=== PATIENT | female | born 1950 | race Caucasian/White ===

== ENCOUNTER → 2017-02-16 | Outpatient (CLI) | payer MEDICARE, OTHER ==
--- NOTE | 2017-02-17 09:09 | MM ---
Reason for exam: screening (asymptomatic). Last mammogram was performed 2 years and 3 months ago. History: Patient is postmenopausal and is nulliparous. Physical Findings: A clinical breast exam by your physician is recommended on an annual basis and results should be correlated with mammographic findings. MG Screening Mammo w CAD Bilateral CC and MLO view(s) were taken. Prior study comparison: November 06, 2014, bilateral MG screening mammo w CAD. October 10, 2013, bilateral digital screening mammo w/CAD. The breast tissue is heterogeneously dense. This may lower the sensitivity of mammography. No significant changes when compared with prior studies. ASSESSMENT: Benign, BI-RAD 2 RECOMMENDATION: Routine screening mammogram of both breasts in 1 year.
== END | disposition home or self-care (01) ==
LOC: RADMAMWWP 16:38
PROVIDERS: ATTEND Family Medicine
DX: Z12.31 Encounter for screening mammogram for malignant neoplasm of breast (principal)

== ENCOUNTER → 2018-08-24 | Outpatient (CLI) | payer MEDICARE, OTHER ==
--- NOTE | 2018-08-26 12:36 | MM ---
Reason for exam: screening (asymptomatic). Last mammogram was performed 1 year and 6 months ago. History: Patient is postmenopausal and is nulliparous. Physical Findings: A clinical breast exam by your physician is recommended on an annual basis and results should be correlated with mammographic findings. MG 3D Screening Mammo W/Cad Bilateral CC and MLO view(s) were taken. Prior study comparison: February 16, 2017, bilateral MG screening mammo w CAD. November 06, 2014, bilateral MG screening mammo w CAD. Developing asymmetry left upper outer quadrant. This finding is changed when compared with previous exams. ASSESSMENT: Incomplete: need additional imaging evaluation, BI-RAD 0 RECOMMENDATION: Special view mammogram of the left breast. If lesion persists on supplemental views, image directed ultrasound is recommended. [facility] will attempt to contact patient to return for supplemental views and ultrasound if indicated.
== END | disposition home or self-care (01) ==
LOC: RADMAMWWP 08:49
PROVIDERS: ATTEND Family Medicine
DX: Z12.31 Encounter for screening mammogram for malignant neoplasm of breast (principal)
CPT/HCPCS: 77063; 77067

== ENCOUNTER → 2018-08-24 | Outpatient (CLI) | payer MEDICARE, OTHER ==
--- NOTE | 2018-08-24 14:04 | BD ---
EXAMINATION TYPE: Axial Bone Density DATE OF EXAM: 08/24/2018 COMPARISON: NONE CLINICAL HISTORY: Height: 62 Weight: 128.0 FRAX RISK QUESTIONS: Alcohol (3 or more units per day): no Family History (Parent hip fracture): unsure Glucocorticoids (More than 3mos): no (Ex: prednisone, prednisolone, methylprednisolone, dexamethasone, and hydrocortisone). History of Fracture in Adulthood: no Secondary Osteoporosis: 1. Type 1 Diabetes: no 2. Hyperthyroidism: no 3. Menopause before 45: no 4. Malnutrition: no 5. Chronic liver disease: no Rheumatoid Arthritis: no Current Tobacco Use: no RISK FACTORS HISTORY OF: Family History of Osteoporosis: unsure Active: yes Diet low in dairy products/other sources of calcium: no Postmenopausal woman: hysterectomy age 52 Lost more than 2 inches in height since high school: yes MEDICATIONS: pt states none Additional History: pt is mentally challenged/ answered questions best she could EXAM MEASUREMENTS: Bone mineral densitometry was performed using the [employer] System. Bone mineral density as measured about the Lumbar spine is: ----- L1-L4(G/cm2): 0.995 T Score Values are as follows: ----- L2: -1.8 ----- L3: -1.1 ----- L4: -1.1 ----- L1-L4: -1.5 Bone mineral density has: increased 6.5 % since study of: 11.06.2014 Bone mineral density about the R hip (g/cm2): 0.691 Bone mineral density about the L hip (g/cm2): 0.774 T Score values are as follows: -----R Neck: -2.5 -----L Neck: -1.9 -----R Total: -1.8 -----L Total: -1.7 Bone mineral density has: decreased -0.9 % since study of: 11.06.2014 IMPRESSION: Osteopenia NOTE: T-SCORE=SD OF THE YOUNG ADULT MEAN.
== END | disposition home or self-care (01) ==
LOC: RADBDWWP 08:53
PROVIDERS: ATTEND Family Medicine
DX: M85.89 Other specified disorders of bone density and structure, multiple sites (principal)
CPT/HCPCS: 77080

== ENCOUNTER → 2018-09-14 | Outpatient (CLI) | payer MEDICARE, OTHER ==
--- NOTE | 2018-09-15 08:44 | MM ---
Reason for exam: additional evaluation requested from prior study. Last mammogram was performed 1 month ago. History: Patient is postmenopausal and is nulliparous. Physical Findings: Nurse did not find any significant physical abnormalities on exam. MG 3D Work Up W/Cad LT Spot compression CC, spot compression MLO, and LM view(s) were taken of the left breast. Prior study comparison: August 24, 2018, bilateral MG 3d screening mammo w/cad. February 16, 2017, bilateral MG screening mammo w CAD. The breast tissue is heterogeneously dense. This may lower the sensitivity of mammography. There is no discrete abnormality on additional views. These results were verbally communicated with the patient and result sheet given to the patient on 09/14/18. ASSESSMENT: Negative, BI-RAD 1 RECOMMENDATION: Return to routine screening mammogram schedule for both breasts.
== END | disposition home or self-care (01) ==
LOC: RADMAMWWP 14:56
PROVIDERS: ATTEND Family Medicine
DX: R92.8 Other abnormal and inconclusive findings on diagnostic imaging of breast (principal)
CPT/HCPCS: 77065; G0279; 77061

== ENCOUNTER → 2019-09-11 | Outpatient (CLI) | payer MEDICARE, OTHER ==
--- NOTE | 2019-09-11 13:19 | MM ---
Reason for exam: screening (asymptomatic). Last mammogram was performed 1 year ago. History: Patient is postmenopausal and is nulliparous. Physical Findings: A clinical breast exam by your physician is recommended on an annual basis and results should be correlated with mammographic findings. MG 3D Screening Mammo W/Cad Bilateral CC and MLO view(s) were taken. Prior study comparison: September 14, 2018, left breast MG 3d work up w/cad LT. August 24, 2018, bilateral MG 3d screening mammo w/cad. The breast tissue is extremely dense which could obscure a lesion on mammography. Benign appearing calcifications in the right breast. No suspicious abnormality. No significant changes when compared with prior studies. ASSESSMENT: Benign, BI-RAD 2 RECOMMENDATION: Routine screening mammogram of both breasts in 1 year.
== END | disposition home or self-care (01) ==
LOC: RADMAMWWP 07:17 → EEVIPCON 07:40
PROVIDERS: ATTEND Family Medicine
DX: Z12.31 Encounter for screening mammogram for malignant neoplasm of breast (principal)
CPT/HCPCS: 77063; 77067

== ENCOUNTER → 2020-09-13 | Outpatient (CLI) | payer MEDICARE, OTHER ==
--- NOTE | 2020-09-17 11:09 | MM ---
Reason for exam: screening (asymptomatic). Last mammogram was performed 1 year ago. History: Patient is postmenopausal and is nulliparous. Physical Findings: A clinical breast exam by your physician is recommended on an annual basis and results should be correlated with mammographic findings. MG 3D Screening Mammo W/Cad Bilateral CC, MLO, and XCCL view(s) were taken. Prior study comparison: September 11, 2019, bilateral MG 3d screening mammo w/cad. September 14, 2018, left breast MG 3d work up w/cad LT. The breast tissue is heterogeneously dense. This may lower the sensitivity of mammography. Tiny round calcification on the right is unchanged. No significant changes when compared with prior studies. ASSESSMENT: Negative, BI-RAD 1 RECOMMENDATION: Routine screening mammogram of both breasts in 1 year.
== END | disposition home or self-care (01) ==
LOC: RADMAMWWP 07:54
PROVIDERS: ATTEND Family Medicine
DX: Z12.31 Encounter for screening mammogram for malignant neoplasm of breast (principal)
CPT/HCPCS: 77063; 77067

== ENCOUNTER → 2021-01-03 | Outpatient (CLI) | payer MEDICARE, OTHER ==
--- NOTE | 2021-01-04 03:06 | MR ---
EXAMINATION TYPE: MR brain wo/w con DATE OF EXAM: 01/03/2021 COMPARISON: None HISTORY: Blurred vision, right eye pain, temporal headache CONTRAST: Standard multiplanar, multisequence MRI departmental protocol utilizing 6 mL intravenous Gadavist donovan olinium contrast. Ventricles and sulci appear normal. There is no mass effect nor midline shift. There is no sign of in tracranial hemorrhage. The diffusion images show no evidence of cortical infarct. There is very mild linear increased signal in the white matter adjacent to the lateral ventricles. Th ere are a few nodular foci that measure up to 5 mm around the occipital horns of the lateral ventricl es. Total number is approximately 5. Brainstem is intact. Cerebellum is intact. There is no evidence of a mass. Corpus callosum shows mild thinning. Sella turcica appears normal. Contrast enhancement is normal. Th ere is normal enhancement of the venous sinuses. Pituitary stalk appears normal. IMPRESSION: There are a few mild white matter signal changes that could relate to some mild microvascular ischemi a. I do not suspect demyelinating disease. No evidence of cortical infarct. No evidence of orbital mass.
== END | disposition home or self-care (01) ==
LOC: RADMRIMAIN 19:30
PROVIDERS: ATTEND Family Medicine
DX: R90.82 White matter disease, unspecified (principal); R51.9 Headache, unspecified
CPT/HCPCS: 70553; A9585

== ENCOUNTER 2021-01-20 12:05 | Day surgery (SDC) | payer MEDICARE, OTHER ==
[2021-01-17 12:20] VITALS: BMI 31.6
[~2021-01-20 12:05] MED LIST: DEXAMETHASONE SOD PHOSPHATE 4 MG/ML 1 ML VIAL IV ONE; HYDROmorphone 0.5 MG/0.5 ML SYRINGE IVP PRN; LACTATED RINGERS 1,000 ML IV SCH; LIDOCAINE 1% (10MG/ML) FOR IV START INTRADERMA PRN; Pre Op ABX Message 1 EACH MISC MISCELLANE ONE
[2021-01-20] MEDS ORDERED: ONDANSETRON 4 MG/2 ML VIAL ONE (13:00)
[2021-01-20 13:12] VITALS: TEMP 98.3
[2021-01-20 13:12] LABS: Glucose,Whole Blood 95 mg/dL (75-99)
[2021-01-20] MEDS ORDERED: LIDOCAINE 1% INJ 10MG/ML (20 ML MDV) ONE (15:38)
[2021-01-20] MEDS ORDERED: KETAMINE 10 MG/ML 20 ML VIAL ONE (15:38)
[2021-01-20] MEDS ORDERED: PROPOFOL 10 MG/ML 20 ML VIAL IV ONE (15:38)
[2021-01-20] MEDS ORDERED: fentaNYL (PF) 50 MCG/ML 2 ML AMP ONE (15:38)
[2021-01-20] MEDS ORDERED: MIDAZOLAM 2 MG/2 ML VIAL ONE (15:38)
[2021-01-20] MEDS ORDERED: LIDOCAINE 1% INJ 10MG/ML (20 ML MDV) SQ ONE ×2 (15:50)
--- NOTE | 2021-01-20 17:04 | P.OP ---
Description of Procedure: Date of Procedure: 01/20/2021 Preoperative Diagnosis: Persistent headaches, rule out temporal arteritis Postoperative Diagnosis: Same Procedure(s) Performed: Left temporal artery branch biopsy Anesthesia: Sedation Surgeon: Michael Powers Estimated Blood Loss (ml): 5cc Pathology: Branch of left temporal artery Condition: stable Disposition: PACU Indications for Procedure: 71-year-old female with history of persistent headaches located on the left and radiates posterior to her eye. She underwent full workup for her headaches including an MRI of the brain as well as multiple laboratory draws demonstrating slight increase in her CRP and ESR. She has been on steroids with some improvement over the last several weeks and presents today for diagnostic biopsy. Description of Procedure: After written informed consent was obtained the patient all risks benefits and competitions were described the patient is brought to the operative suite and laid in a supine position. The area of the left side of the head was prepped and draped in usual sterile fashion after appropriate anesthetic was performed per the anesthesiologist. A timeout was performed in normal fashion antibiotics were administered prior to incision. Utilizing Doppler the temporal artery was located. Local anesthetic was infused overlying this area. Small incision with a 15 blade scalpel was then created just anterior to the hairline and dissection was carried down with electrocautery to the temporal artery. The anterior branch of the temporal artery was then dissected free in a circumferential manner. This vessel was diminutive in size but did demonstrate Doppler arterial flow. Approximately 2 cm were then dissected free and the proximal and distal aspects were then ligated with 4-0 silk suture. The specimen was then passed off for pathology. The area was irrigated and the incision was closed in a multilayer fashion. The skin was then cleansed and glue was placed. Patient all procedure well and was sent to PACU for recovery. Plan - Discharge Summary Discharge Rx Participant: No New Discharge Prescriptions: No Action Multivitamin with Iron [Multivitamins with Iron] 1 each PO DAILY Alendronate Sodium [Fosamax] 70 mg PO Q7D prednisoLONE ACETATE 1% OPHTH [Pred Forte 1%] 1 drops LEFT EYE TID LORazepam [Ativan] 0.5 mg PO BID PRN PRN Reason: Anxiety predniSONE [Deltasone] 60 mg PO HS Cholecalciferol [Vitamin D3 (25 Mcg = 1000 Iu)] 25 mcg PO DAILY Simvastatin [Zocor] 40 mg PO HS Cetirizine HCl [Zyrtec] 10 mg PO HS Blink Gel Tears 1 - 2 drops BOTH EYES TID Acetaminophen [Tylenol Extra Strength] 1,000 mg PO DIRECTED PRN PRN Reason: Pain Discharge Medication List Acetaminophen [Tylenol Extra Strength] 1,000 mg PO DIRECTED PRN 01/17/21 [History] Alendronate Sodium [Fosamax] 70 mg PO Q7D 01/17/21 [History] Blink Gel Tears 1 - 2 drops BOTH EYES TID 01/17/21 [History] Cetirizine HCl [Zyrtec] 10 mg PO HS 01/17/21 [History] Cholecalciferol [Vitamin D3 (25 Mcg = 1000 Iu)] 25 mcg PO DAILY 01/17/21 [History] LORazepam [Ativan] 0.5 mg PO BID PRN 01/17/21 [History] Multivitamin with Iron [Multivitamins with Iron] 1 each PO DAILY 01/17/21 [History] Simvastatin [Zocor] 40 mg PO HS 01/17/21 [History] predniSONE [Deltasone] 60 mg PO HS 01/17/21 [History] prednisoLONE ACETATE 1% OPHTH [Pred Forte 1%] 1 drops LEFT EYE TID 01/17/21 [History] Follow up Appointment(s)/Referral(s): Michael Powers DO [STAFF PHYSICIAN] - 2 Weeks Discharge Disposition: HOME SELF-CARE
[2021-01-20] MEDS ORDERED: LABETALOL SYRINGE 5 MG/ML IVP ONE (18:05)
[2021-01-20 18:35] VITALS: BP 156/82; PULSE 57; RESP 16
== END 2021-01-20 18:36 | disposition home or self-care (01) ==
LOC: OR 12:05
PROVIDERS: ATTEND Surgery
DX: R51.9 Headache, unspecified (principal); H53.8 Other visual disturbances; H57.12 Ocular pain, left eye; I65.23 Occlusion and stenosis of bilateral carotid arteries; E78.5 Hyperlipidemia, unspecified; H26.9 Unspecified cataract; F89 Unspecified disorder of psychological development; F60.9 Personality disorder, unspecified; Z79.52 Long term (current) use of systemic steroids; Z79.899 Other long term (current) drug therapy; Z79.83 Long term (current) use of bisphosphonates
CPT/HCPCS: 37609; 96360; 99283; 36415; 88305; 80048; 82009; 85025; J2250; J1100; J2405; J2001; J3010; J2704

== ENCOUNTER 2021-01-20 22:03 | Emergency (ER) | payer MEDICARE, OTHER ==
--- NOTE | 2021-01-20 23:08 | ED ---
Recheck HPI - General Chief Complaint: Recheck/Abnormal Lab/Rx Stated Complaint: Surgical Issues Time Seen by Provider: 01/20/21 22:24 Source: patient, family Mode of arrival: ambulatory Limitations: no limitations - History of Present Illness Initial Comments: This patient is a 71-year-old woman who is brought by a caregiver to be evaluated for elevated blood sugar. When checked tonight it was greater than 400. They phoned the covering physician who recommended she be seen in the emergency department. The patient had undergone a temporal artery biopsy this afternoon, and has been taking 60 mg of prednisone daily. Patient denies abdominal pain, nausea or vomiting. MD Complaint: other (Elevated blood sugar) -: hour(s) Returns Today for: other (Elevated blood sugar) Symptoms Since Prior Visit: no new symptoms Associated Symptoms: none Treatments Prior to Arrival: other medications - Related Data Home Medications Medication Instructions Recorded Confirmed Acetaminophen [Tylenol Extra 1,000 mg PO DIRECTED PRN 01/17/21 01/20/21 Strength] Alendronate Sodium [Fosamax] 70 mg PO Q7D 01/17/21 01/20/21 Blink Gel Tears 1 - 2 drops BOTH EYES TID 01/17/21 01/20/21 Cetirizine HCl [Zyrtec] 10 mg PO HS 01/17/21 01/20/21 Cholecalciferol [Vitamin D3 (25 25 mcg PO DAILY 01/17/21 01/20/21 Mcg = 1000 Iu)] LORazepam [Ativan] 0.5 mg PO BID PRN 01/17/21 01/20/21 Multivitamin with Iron 1 each PO DAILY 01/17/21 01/20/21 [Multivitamins with Iron] Simvastatin [Zocor] 40 mg PO HS 01/17/21 01/20/21 predniSONE [Deltasone] 60 mg PO HS 01/17/21 01/20/21 prednisoLONE ACETATE 1% OPHTH 1 drops LEFT EYE TID 01/17/21 01/20/21 [Pred Forte 1%] Previous Rx's Medication Instructions Recorded metFORMIN HCL [Glucophage] 500 mg PO BID #10 tab 01/21/21 Allergies Allergy/AdvReac Type Severity Reaction Status Date / Time No Known Allergies Allergy Verified 01/20/21 22:15 Review of Systems ROS Statement: Those systems with pertinent positive or pertinent negative responses have been documented in the HPI. ROS Other: All systems not noted in ROS Statement are negative. 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 c/o Lt eye and head pain, some diff w/ lt eye vision, on PO steroids. History of Any Multi-Drug Resistant Organisms: None Reported Past Surgical History: Hysterectomy Past Anesthesia/Blood Transfusion Reactions: Unable to Obtain Past Psychological History: Anxiety Smoking Status: Never smoker Past Alcohol Use History: None Reported Past Drug Use History: None Reported - Past Family History Father Family Medical History: Diabetes Mellitus General Exam Limitations: no limitations General appearance: alert, in no apparent distress Head exam: Present: atraumatic, normocephalic ENT exam: Present: normal oropharynx Neck exam: Present: normal inspection, full ROM Respiratory exam: Present: normal lung sounds bilaterally. Absent: respiratory distress, wheezes, rales, rhonchi, stridor Cardiovascular Exam: Present: regular rate, normal rhythm, normal heart sounds. Absent: systolic murmur, diastolic murmur, rubs, gallop GI/Abdominal exam: Present: soft. Absent: distended, tenderness, guarding, rebound, rigid, mass Extremities exam: Present: normal inspection, normal capillary refill. Absent: pedal edema, calf tenderness Back exam: Present: normal inspection Neurological exam: Present: alert Skin exam: Present: warm, dry, intact, normal color, other (The patient's biopsy site is closed dry and intact. No abnormal warmth or erythema or any drainage.) Course Vital Signs 01/20/21 22:10 Temperature 98.2 F Pulse Rate 60 Respiratory 18 Rate Blood Pressure 171/96 O2 Sat by Pulse 99 Oximetry Medical Decision Making - Lab Data Result diagrams: 01/20/21 22:51 01/20/21 22:51 Lab Results 01/20/21 01/20/21 Range/Units 22:51 22:51 WBC 13.5 H (3.8-10.6) k/uL RBC 4.31 (3.80-5.40) m/uL Hgb 13.5 (11.4-16.0) gm/dL Hct 41.8 (34.0-46.0) % MCV 96.8 (80.0-100.0) fL MCH 31.3 (25.0-35.0) pg MCHC 32.3 (31.0-37.0) g/dL RDW 13.3 (11.5-15.5) % Plt Count 261 (150-450) k/uL MPV 6.5 Neutrophils % 90 % Lymphocytes % 5 % Monocytes % 5 % Eosinophils % 0 % Basophils % 0 % Neutrophils # 12.1 H (1.3-7.7) k/uL Lymphocytes # 0.6 L (1.0-4.8) k/uL Monocytes # 0.7 (0-1.0) k/uL Eosinophils # 0.0 (0-0.7) k/uL Basophils # 0.0 (0-0.2) k/uL Sodium 136 L (137-145) mmol/L Potassium 3.7 (3.5-5.1) mmol/L Chloride 99 (98-107) mmol/L Carbon Dioxide 26 (22-30) mmol/L Anion Gap 11 mmol/L BUN 18 H (7-17) mg/dL Creatinine 0.68 (0.52-1.04) mg/dL Est GFR (CKD-EPI)AfAm >90 (>60 ml/min/1.73 sqM) Est GFR (CKD-EPI)NonAf 90 (>60 ml/min/1.73 sqM) Glucose 314 H (74-99) mg/dL Calcium 8.8 (8.4-10.2) mg/dL Acetone, Qual Negative (Negative) Disposition Clinical Impression: Hyperglycemia Disposition: HOME SELF-CARE Condition: Good Instructions (If sedation given, give patient instructions): Nondiabetic Hyperglycemia (ED) Prescriptions: metFORMIN HCL [Glucophage] 500 mg PO BID #10 tab Is patient prescribed a controlled substance at d/c from ED?: No Referrals: Regis Field DO [Primary Care Provider] - 1-2 days
[2021-01-20 23:14] LABS: Basophils % (A) 0 %; Eosinophils % (A) 0 %; HCT 41.8 % (34.0-46.0); HGB 13.5 gm/dL (11.4-16.0); Lymphocytes # (A) 0.6 k/uL (1.0-4.8); Lymphocytes % (A) 5 %; MCH 31.3 pg (25.0-35.0); MCHC 32.3 g/dL (31.0-37.0); MCV 96.8 fL (80.0-100.0); Mean Platelet Volume 6.5; Monocytes # (A) 0.7 k/uL (0-1.0); Monocytes % (A) 5 %; Neutrophils # (A) 12.1 k/uL (1.3-7.7); Neutrophils % (A) 90 %; Platelet Count 261 k/uL (150-450); RBC 4.31 m/uL (3.80-5.40); RDW 13.3 % (11.5-15.5); WBC 13.5 k/uL (3.8-10.6)
[2021-01-20 23:30] LABS: African American GFR (CKD) >90 (>60 ml/min/1.73 sqM); Anion Gap 11 mmol/L; Blood Urea Nitrogen 18 mg/dL (7-17); Calcium 8.8 mg/dL (8.4-10.2); Carbon Dioxide 26 mmol/L (22-30); Chloride 99 mmol/L (98-107); Glucose 314 mg/dL (74-99); Non-African American GFR(CKD) 90 (>60 ml/min/1.73 sqM); Potassium 3.7 mmol/L (3.5-5.1); Sodium 136 mmol/L (137-145)
[2021-01-21] MEDS ORDERED: INSULIN REGULAR 100 UNIT/ML VIAL SQ STA (00:12)
[2021-01-21] MEDS ORDERED: SODIUM CHLORIDE 0.9% 1,000 ML IV ONE ×2 (00:12→00:13)
[2021-01-21] MEDS ORDERED: traMADol 50 MG TAB PO STA (01:34)
[2021-01-21 01:55] LABS: Glucose,Whole Blood 170 mg/dL (75-99)
[2021-01-21 02:20] VITALS: BP 138/84; PULSE 56; RESP 16; TEMP 98
== END 2021-01-21 02:05 | disposition home or self-care (01) ==
LOC: EC 22:03
DX: R73.9 Hyperglycemia, unspecified (principal); F70 Mild intellectual disabilities; F41.9 Anxiety disorder, unspecified; Z79.899 Other long term (current) drug therapy; Z90.710 Acquired absence of both cervix and uterus
CPT/HCPCS: 36415; 80048; 82009; 85025; 96360; 99283

== ENCOUNTER → 2022-04-01 | Outpatient (CLI) | payer MEDICARE, OTHER ==
--- NOTE | 2022-04-01 22:45 | BD ---
EXAMINATION TYPE: Axial Bone Density DATE OF EXAM: 04/01/2022 COMPARISON: 2018 CLINICAL HISTORY: 72 years year old Female. ICD-10 CODE: M81.0 Osteoporosis Height: 5' Weight: 127 FRAX RISK QUESTIONS: Secondary Osteoporosis: RISK FACTORS HISTORY OF: Postmenopausal woman: y MEDICATIONS: Additional Medications: cholesterol. adivant Additional History: EXAM MEASUREMENTS: Bone mineral densitometry was performed using the [employer] System. Bone mineral density as measured about the Lumbar spine is: ----- L1-L4(G/cm2): 0.962 T Score Values are as follows: ----- L1: -2.7 ----- L2: -2.4 ----- L3: -0.7 ----- L4: -1.9 ----- L1-L4: -1.8 Bone mineral density has: Decreased -4.0% since study of: 08/24/2018 Bone mineral density about the R hip (g/cm2): 0.735 Bone mineral density about the L hip (g/cm2): 0.741 T Score values are as follows: -----R Neck: -2.2 -----L Neck: -2.1 -----R Total: -1.9 -----L Total: -1.5 Bone mineral density has: Increased 0.5% since study of: 08/24/2018 FRAX: The graph provided illustrates a 13.0% chance for a major osteoporotic fx and a 2.9% chance for the hips probability for fx in 10 years time. IMPRESSION: Osteopenia (T Score between -2.5 and -1). There is slightly increased risk of fracture and the patient may be considered for treatment. Re-Screen 2-5 years. NOTE: T-SCORE=SD OF THE YOUNG ADULT MEAN.
--- NOTE | 2022-04-03 10:44 | MM ---
Reason for exam: screening (asymptomatic). Last mammogram was performed 1 year and 7 months ago. History: Patient is postmenopausal and is nulliparous. Physical Findings: A clinical breast exam by your physician is recommended on an annual basis and results should be correlated with mammographic findings. MG 3D Screening Mammo W/Cad Bilateral CC and MLO view(s) were taken. Prior study comparison: September 13, 2020, bilateral MG 3d screening mammo w/cad. September 11, 2019, bilateral MG 3d screening mammo w/cad. The breast tissue is extremely dense which could obscure a lesion on mammography. There is no discrete abnormality. No significant changes when compared with prior studies. ASSESSMENT: Negative, BI-RAD 1 RECOMMENDATION: Routine screening mammogram of both breasts in 1 year.
== END | disposition home or self-care (01) ==
LOC: RADMAMWWP 09:45
PROVIDERS: ATTEND Family Medicine
DX: Z12.31 Encounter for screening mammogram for malignant neoplasm of breast (principal); M85.89 Other specified disorders of bone density and structure, multiple sites; Z78.0 Asymptomatic menopausal state
CPT/HCPCS: 77063; 77067; 77080

== ENCOUNTER → 2023-11-05 | Outpatient (CLI) | payer MEDICARE, OTHER ==
--- NOTE | 2023-11-05 10:42 | US ---
EXAMINATION TYPE: US liver DATE OF EXAM: 11/05/2023 COMPARISON: NONE CLINICAL INDICATION: Female, 73 years old with history of R74.01 ELEVATION OF LEVELS OF LIVER TRANSAM INASE L; elevated LFTs, no symptoms TECHNIQUE: Multiple sonographic images of the right upper quadrant are obtained. FINDINGS: EXAM MEASUREMENTS: Liver Length: 14.3 cm Gallbladder Wall: 0.2 cm CBD: 0.5 cm Right Kidney: 9.2 x 4.0 x 3.6 cm [employer] NOTES:bowel gas limits exam Pancreas: Suboptimal visualization of the pancreatic tail due to shadowing from bowel gas. Visualize d portions within normal limits. Liver: Normal homogeneous appearance without focal lesion. Gallbladder: wnl Evidence for sonographic Garcia's sign: no CBD: wnl Right Kidney: wnl , no hydronephrosis. IMPRESSION: Exam limitations as above. No gallstones or biliary ductal dilatation.
== END | disposition home or self-care (01) ==
LOC: RADUSWWP 08:43
PROVIDERS: ATTEND Family Medicine
DX: R74.01 Elevation of levels of liver transaminase levels (principal)
CPT/HCPCS: 76705

== ENCOUNTER 2024-04-07 13:01 | Emergency (ER) | payer MEDICARE, OTHER ==
--- NOTE | 2024-04-07 13:53 | ED ---
General Adult HPI - General Chief complaint: Abdominal Pain Stated complaint: Urogenital Time Seen by Provider: 04/07/24 13:05 Source: patient, RN notes reviewed, old records reviewed, Caregiver Mode of arrival: ambulatory Limitations: no limitations - History of Present Illness Initial comments: This is a 74-year-old female who is developmentally delayed. Patient is here because the caregiver thought her belly looked distended. Patient is having no rmal bowel movements patient is not having any vomiting there is been no fevers. Patient has not complained of any abdominal pain. Patient has had no chest pain or difficulty breathing. Patient cannot give any history all history was given by the caregiver - Related Data Home Medications Medication Instructions Recorded Confirmed Acetaminophen [Tylenol Extra 1,000 mg PO DIRECTED PRN 01/17/21 01/20/21 Strength] Alendronate Sodium [Fosamax] 70 mg PO Q7D 01/17/21 01/20/21 Blink Gel Tears 1 - 2 drops BOTH EYES TID 01/17/21 01/20/21 Cetirizine HCl [Zyrtec] 10 mg PO HS 01/17/21 01/20/21 Cholecalciferol [Vitamin D3 (25 25 mcg PO DAILY 01/17/21 01/20/21 Mcg = 1000 Iu)] LORazepam [Ativan] 0.5 mg PO BID PRN 01/17/21 01/20/21 Multivitamin with Iron 1 each PO DAILY 01/17/21 01/20/21 [Multivitamins with Iron] Simvastatin [Zocor] 40 mg PO HS 01/17/21 01/20/21 predniSONE [Deltasone] 60 mg PO HS 01/17/21 01/20/21 prednisoLONE ACETATE 1% OPHTH 1 drops LEFT EYE TID 01/17/21 01/20/21 [Pred Forte 1%] Previous Rx's Medication Instructions Recorded metFORMIN HCL [Glucophage] 500 mg PO BID #10 tab 01/21/21 Allergies Allergy/AdvReac Type Severity Reaction Status Date / Time No Known Allergies Allergy Verified 04/07/24 13:09 Review of Systems ROS Statement: Those systems with pertinent positive or pertinent negative responses have been documented in the HPI. ROS Other: All systems not noted in ROS Statement are negative. Past Medical History Past Medical History: Eye Disorder Additional Past Medical History / Comment(s): Mild developmental disability; resides in private home with 24/7 care since 2007 est, caregiver is Brittany Sevilla. c/o Lt eye and head pain, some diff w/ lt eye vision, on PO steroids. History of Any Multi-Drug Resistant Organisms: None Reported Past Surgical History: Hysterectomy Past Anesthesia/Blood Transfusion Reactions: Unable to Obtain Past Psychological History: Anxiety Smoking Status: Never smoker Past Alcohol Use History: None Reported Past Drug Use History: None Reported - Past Family History Father Family Medical History: Diabetes Mellitus General Exam - General Exam Comments Initial Comments: GENERAL: Patient is well-developed and well-nourished. Patient is nontoxic and well- hydrated and is in no acute distress. ENT: Neck is soft and supple. No significant lymphadenopathy is noted. Oropharynx is clear. Moist mucous membranes. Neck has full range of motion without nikhil citing any pain. EYES: The sclera were anicteric and conjunctiva were pink and moist. Extraocular movements were intact and pupils were equal round and reactive to light. Eyelids were unremarkable. PULMONARY: Unlabored respirations. Good breath sounds bilaterally. No audible rales rhonchi or wheezing was noted. CARDIOVASCULAR: There is a regular rate and rhythm without any murmurs gallops or rubs. ABDOMEN: Abdomen does seem distended but there is no pain on palpation SKIN: Skin is clear with no lesions or rashes and otherwise unremarkable. NEUROLOGIC: Patient is alert and oriented x 1 which is her baseline according to the caregiver. Cranial nerves II through XII are grossly intact. Motor and sensory are also intact. Normal speech, volume and content. Symmetrical smile. MUSCULOSKELETAL: Normal extremities with adequate strength and full range of motion. No lower extremity swelling or edema. No calf tenderness. LYMPHATICS: No significant lymphadenopathy is noted PSYCHIATRIC: Normal psychiatric evaluation. Limitations: no limitations Course Vital Signs 04/07/24 04/07/24 13:05 13:36 Temperature 97.9 F 98.1 F Pulse Rate 57 L 70 Respiratory 18 18 Rate Blood Pressure 179/107 193/101 O2 Sat by Pulse 98 97 Oximetry Medical Decision Making - Medical Decision Making Was pt. sent in by a medical professional or institution (, PA, EARLY INTERVENTIONIST, urgent care, hospital, or retirement...) When possible be specific @ -No Did you speak to anyone other than the patient for history (EMS, parent, family, police, friend...)? What history was obtained from this source @ -Caregiver gave most of the history because the patient herself is delayed Did you review nursing and triage notes (agree or disagree)? Why? @ -I reviewed and agree with nursing and triage notes Were old charts reviewed (outside hosp., previous admission, EMS record, old EKG, old radiological studies, urgent care reports/EKG's, retirement records)? Report findings @ -No old charts were reviewed Differential Diagnosis (chest pain, altered mental status, abdominal pain women, abdominal pain men, vaginal bleeding, weakness, fever, dyspnea, syncope, hea dache, dizziness, GI bleed, back pain, seizure, CVA, palpatations, mental health, musculoskeletal)? @ -MDM abdominal pain EKG interpreted by me (3pts min.). @ -As above X-rays interpreted by me (1pt min.). @ -KUB shows no acute abnormality CT interpreted by me (1pt min.). @ -None done U/S interpreted by me (1pt. min.). @ -None done What testing was considered but not performed or refused? (CT, X-rays, U/S, labs)? Why? @ -None What meds were considered but not given or refused? Why? @ -None Did you discuss the management of the patient with other professionals (professionals i.e. , PA, EARLY INTERVENTIONIST, lab, RT, psych nurse, social security assessor, networks computer consultant, teacher, commissioned security officer, correctional case manager)? Give summary @ -No Was smoking cessation discussed for >3mins.? @ -No Was critical care preformed (if so, how long)? @ -No Were there social determinants of health that impacted care today? How? (Homelessness, low income, unemployed, alcoholism, drug addiction, transportation, low edu. Level, literacy, decrease access to med. care, detention, rehab)? @ -No Was there de-escalation of care discussed even if they declined (Discuss DNR or withdrawal of care, Hospice)? DNR status @ -No What co-morbidities impacted this encounter? (DM, HTN, Smoking, COPD, CAD, Cancer, CVA, ARF, Chemo, Hep., AIDS, mental health diagnosis, sleep apnea, morbid obesity)? @ -None Was patient admitted / discharged? Hospital course, mention meds given and route, prescriptions, significant lab abnormalities, going to OR and other pertinent info. @ -I went back and reexamined the patient and patient was having no abdominal pain. Patient is having no vomiting or diarrhea. Patient states that her when she bent over to clean her brittany litter but it did not hurt her when she walked around and did not hurt her when she rode her bicycle. Caregiver stated that she will watch out for further symptoms or new symptoms and bring the patient back if necessary Undiagnosed new problem with uncertain prognosis? @ -No Drug Therapy requiring intensive monitoring for toxicity (Heparin, Nitro, Insulin, Cardizem)? @ -No Were any procedures done? @ -No Diagnosis/symptom? @ -Abdominal distention Acute, or Chronic, or Acute on Chronic? @ -Acute Uncomplicated (without systemic symptoms) or Complicated (systemic symptoms)? @ -Uncomplicated Side effects of treatment? @ -No Exacerbation, Progression, or Severe Exacerbation? @ -No Poses a threat to life or bodily function? How? (Chest pain, USA, CT, pneumonia, PE, COPD, DKA, ARF, appy, cholecystitis, CVA, Diverticulitis, Homicidal, Suicidal, threat to staff... and all critical care pts) @ -No - Lab Data Result diagrams: 04/07/24 14:04 04/07/24 14:04 Lab Results 04/07/24 04/07/24 04/07/24 Range/Units 14:04 14:04 14:04 WBC 7.1 (3.8-10.6) k/uL RBC 4.59 (3.80-5.40) m/uL Hgb 14.0 (11.4-16.0) gm/dL Hct 43.5 (34.0-46.0) % MCV 94.8 (80.0-100.0) fL MCH 30.5 (25.0-35.0) pg MCHC 32.2 (31.0-37.0) g/dL RDW 12.4 (11.5-15.5) % Plt Count 286 (150-450) k/uL MPV 7.1 Neutrophils % 60 % Lymphocytes % 30 % Monocytes % 5 % Eosinophils % 3 % Basophils % 1 % Neutrophils # 4.2 (1.3-7.7) k/uL Lymphocytes # 2.1 (1.0-4.8) k/uL Monocytes # 0.3 (0-1.0) k/uL Eosinophils # 0.2 (0-0.7) k/uL Basophils # 0.1 (0-0.2) k/uL Sodium 140 (137-145) mmol/L Potassium 4.2 (3.5-5.1) mmol/L Chloride 106 (98-107) mmol/L Carbon Dioxide 26 (22-30) mmol/L Anion Gap 8 mmol/L BUN 11 (7-17) mg/dL Creatinine 0.65 (0.52-1.04) mg/dL Est GFR (CKD-EPI)AfAm >90 (>60 ml/min/1.73 sqM) Est GFR (CKD-EPI)NonAf 89 (>60 ml/min/1.73 sqM) Glucose 128 H (74-99) mg/dL Plasma Lactic Acid Teja (0.7-2.0) mmol/L Calcium 9.1 (8.4-10.2) mg/dL Total Bilirubin 0.6 (0.2-1.3) mg/dL AST 35 (14-36) U/L ALT 47 H (4-34) U/L Alkaline Phosphatase 61 (38-126) U/L Total Protein 7.8 (6.3-8.2) g/dL Albumin 4.5 (3.5-5.0) g/dL Amylase 56 (30-110) U/L Lipase 240 (23-300) U/L Urine Color Colorless Urine Appearance Clear (Clear) Urine pH 5.0 (5.0-8.0) Ur Specific [place] 1.011 (1.001-1.035) Urine Protein Negative (Negative) Urine Glucose (UA) Negative (Negative) Urine Ketones Negative (Negative) Urine Blood Negative (Negative) Urine Nitrite Negative (Negative) Urine Bilirubin Negative (Negative) Urine Urobilinogen <2.0 (<2.0) mg/dL Ur Leukocyte Esterase Negative (Negative) 04/07/24 Range/Units 14:04 WBC (3.8-10.6) k/uL RBC (3.80-5.40) m/uL Hgb (11.4-16.0) gm/dL Hct (34.0-46.0) % MCV (80.0-100.0) fL MCH (25.0-35.0) pg MCHC (31.0-37.0) g/dL RDW (11.5-15.5) % Plt Count (150-450) k/uL MPV Neutrophils % % Lymphocytes % % Monocytes % % Eosinophils % % Basophils % % Neutrophils # (1.3-7.7) k/uL Lymphocytes # (1.0-4.8) k/uL Monocytes # (0-1.0) k/uL Eosinophils # (0-0.7) k/uL Basophils # (0-0.2) k/uL Sodium (137-145) mmol/L Potassium (3.5-5.1) mmol/L Chloride (98-107) mmol/L Carbon Dioxide (22-30) mmol/L Anion Gap mmol/L BUN (7-17) mg/dL Creatinine (0.52-1.04) mg/dL Est GFR (CKD-EPI)AfAm (>60 ml/min/1.73 sqM) Est GFR (CKD-EPI)NonAf (>60 ml/min/1.73 sqM) Glucose (74-99) mg/dL Plasma Lactic Acid Teja 1.7 (0.7-2.0) mmol/L Calcium (8.4-10.2) mg/dL Total Bilirubin (0.2-1.3) mg/dL AST (14-36) U/L ALT (4-34) U/L Alkaline Phosphatase (38-126) U/L Total Protein (6.3-8.2) g/dL Albumin (3.5-5.0) g/dL Amylase (30-110) U/L Lipase (23-300) U/L Urine Color Urine Appearance (Clear) Urine pH (5.0-8.0) Ur Specific [place] (1.001-1.035) Urine Protein (Negative) Urine Glucose (UA) (Negative) Urine Ketones (Negative) Urine Blood (Negative) Urine Nitrite (Negative) Urine Bilirubin (Negative) Urine Urobilinogen (<2.0) mg/dL Ur Leukocyte Esterase (Negative) Disposition Clinical Impression: Abdominal distention Disposition: HOME SELF-CARE Condition: Good Instructions (If sedation given, give patient instructions): Abdominal Pain (ED) Is patient prescribed a controlled substance at d/c from ED?: No Referrals: Regis Field DO [Primary Care Provider] - 1-2 days Time of Disposition: 15:13
[2024-04-07 14:26] LABS: Appearance,Urine Clear (Clear); Bilirubin,Urine Negative (Negative); Blood,Urine Negative (Negative); Color,Urine Colorless; Glucose,Urine (UA) Negative (Negative); Ketones,Urine Negative (Negative); Leukocyte Esterase,Urine Negative (Negative); Nitrite,Urine Negative (Negative); Protein,Urine Negative (Negative); Specific Gravity,Urine 1.011 (1.001-1.035); Urobilinogen,Urine <2.0 mg/dL (<2.0)
[2024-04-07 14:36] LABS: Basophils # (A) 0.1 k/uL (0-0.2); Basophils % (A) 1 %; Eosinophils # (A) 0.2 k/uL (0-0.7); Eosinophils % (A) 3 %; HCT 43.5 % (34.0-46.0); Lymphocytes # (A) 2.1 k/uL (1.0-4.8); Lymphocytes % (A) 30 %; MCH 30.5 pg (25.0-35.0); MCHC 32.2 g/dL (31.0-37.0); MCV 94.8 fL (80.0-100.0); Mean Platelet Volume 7.1; Monocytes # (A) 0.3 k/uL (0-1.0); Monocytes % (A) 5 %; Neutrophils # (A) 4.2 k/uL (1.3-7.7); Neutrophils % (A) 60 %; Platelet Count 286 k/uL (150-450); RBC 4.59 m/uL (3.80-5.40); RDW 12.4 % (11.5-15.5); WBC 7.1 k/uL (3.8-10.6)
[2024-04-07 14:46] LABS: ALT 47 U/L (4-34); AST 35 U/L (14-36); African American GFR (CKD) >90 (>60 ml/min/1.73 sqM); Albumin 4.5 g/dL (3.5-5.0); Alkaline Phosphatase 61 U/L (38-126); Amylase 56 U/L (30-110); Anion Gap 8 mmol/L; Blood Urea Nitrogen 11 mg/dL (7-17); Calcium 9.1 mg/dL (8.4-10.2); Carbon Dioxide 26 mmol/L (22-30); Chloride 106 mmol/L (98-107); Glucose 128 mg/dL (74-99); Lipase 240 U/L (23-300); Non-African American GFR(CKD) 89 (>60 ml/min/1.73 sqM); Potassium 4.2 mmol/L (3.5-5.1); Sodium 140 mmol/L (137-145); Total Bilirubin 0.6 mg/dL (0.2-1.3); Total Protein 7.8 g/dL (6.3-8.2)
--- NOTE | 2024-04-07 14:51 | XR ---
KUB. HISTORY: Abdominal pain. COMPARISON: None. TECHNIQUE: Single upright view the abdomen was obtained. FINDINGS: The lung bases are clear. There is no free intraperitoneal air beneath the diaphragm. The bowel gas pattern is nonspecific and there is no evidence of obstruction. No suspicious abdominal or pelvic calcifications are seen. The osseous structures are intact. IMPRESSION: Nonspecific abdomen without evidence of free air or obstruction.
[2024-04-07 15:08] VITALS: RESP 18
[2024-04-07 16:33] VITALS: BP 198/81; PULSE 73; TEMP 98.6
== END 2024-04-07 15:44 | disposition home or self-care (01) ==
LOC: EC 13:01
DX: R14.0 Abdominal distension (gaseous) (principal)
CPT/HCPCS: 36415; 74018; 80053; 81003; 82150; 83605; 83690; 85025; 99284

== ENCOUNTER → 2024-04-07 | Outpatient (CLI) | payer MEDICARE, OTHER ==
--- NOTE | 2024-04-10 10:33 | MM ---
Reason for Exam: Screening (asymptomatic). Last screening mammogram was performed 12 month(s) ago. Patient History: Menarche at age 11. Patient has no children. Left ovary removed at age 50. Right ovary removed at age 50. Hysterectomy at age 50. Postmenopausal. Risk Values: Meseret 5 year model risk: 2.1%. NCI Lifetime model risk: 5.6%. Prior Study Comparison: 09/13/2020 Bilateral Screening Mammogram, [facility]. 04/01/2022 Bilateral Screening Mammogram, [facility]. 04/02/2023 Bilateral MG 3D screening mammo w/cad, [facility]. Tissue Density: There are scattered areas of fibroglandular density. Findings: Analyzed By CAD. Right breast: There is no suspicious group of microcalcifications or new suspicious mass. Left breast: There is no suspicious group of microcalcifications or new suspicious mass. Overall Assessment: Negative, BI-RAD 1 Management: Screening Mammogram of both breasts in [address] [facility] will attempt to contact patient to return for supplemental views and ultrasound if indicated. Patient should continue monthly self-breast exams. A clinical breast exam by your physician is recommended on an annual basis. This exam should not preclude additional follow-up of suspicious palpable abnormalities. Note on Meseret scores and lifetime risk: 1. A Meseret score greater than 3% is considered moderate risk. If this is the case, consider specialist referral to assess eligibility for a risk reducing agent. 2. If overall lifetime risk for the development of breast cancer is 20% or higher, the patient may qualify for future screening with alternating mammogram and breast MRI. Electronically signed and approved by: Benitez Escobedo DO
== END | disposition home or self-care (01) ==
LOC: RADMAMWWP 09:22
PROVIDERS: ATTEND Family Medicine
DX: Z12.31 Encounter for screening mammogram for malignant neoplasm of breast (principal); Z78.0 Asymptomatic menopausal state
CPT/HCPCS: 77063; 77067

== ENCOUNTER → 2025-05-11 | Outpatient (CLI) | payer MEDICARE, OTHER ==
--- NOTE | 2025-05-11 11:08 | MM ---
Reason for Exam: Screening (asymptomatic). Last mammogram was performed 1 year(s) and 1 month(s) ago. Patient History: Menarche at age 11. Patient has no children. Left ovary removed at age 50. Right ovary removed at age 50. Hysterectomy at age 50. Postmenopausal. Risk Values: Meseret 5 year model risk: 2.2%. NCI Lifetime model risk: 5.3%. Prior Study Comparison: 04/01/2022 Bilateral Screening Mammogram, [facility]. 04/02/2023 Bilateral MG 3D screening mammo w/cad, [facility]. 04/07/2024 Bilateral MG 3D screening mammo w/cad, [facility]. Tissue Density: The breasts are extremely dense, which lowers the sensitivity of mammography. Findings: Analyzed By CAD. There is no suspicious group of microcalcifications or new suspicious mass in either breast. Overall Assessment: Benign, BI-RAD 2 Management: Screening Mammogram of both breasts in 1 year. . Patient should continue monthly self-breast exams. A clinical breast exam by your physician is recommended on an annual basis. This exam should not preclude additional follow-up of suspicious palpable abnormalities. Note on Meseret scores and lifetime risk: 1. A Meseret score greater than 3% is considered moderate risk. If this is the case, consider specialist referral to assess eligibility for a risk reducing agent. 2. If overall lifetime risk for the development of breast cancer is 20% or higher, the patient may qualify for future screening with alternating mammogram and breast MRI. [facility], , 05/11/2025 11:05 AM. Electronically signed and approved by: Joshua Schaefer M.D. Radiologis
== END | disposition home or self-care (01) ==
LOC: RADMAMWWP 10:42 → EEVIPCON 11:00
PROVIDERS: ATTEND Family Medicine
DX: Z12.31 Encounter for screening mammogram for malignant neoplasm of breast (principal); R92.343 Mammographic extreme density, bilateral breasts; Z78.0 Asymptomatic menopausal state
CPT/HCPCS: 77063; 77067